=== PATIENT | female | born 1960 | race Caucasian/White ===

== ENCOUNTER 2017-05-27 10:41 | Emergency (ER) | payer OTHER ==
[~2017-05-27] VITALS: Ht 157.5 cm; Wt 74.8 kg
[2017-05-27 12:06] LABS: BILIRUBIN,URINE NEGATIVE (NEGATIVE); KETONES,URINE NEGATIVE (NEGATIVE); LEUKOCYTE ESTERASE ,URINE NEGATIVE (NEGATIVE); NITRITE,URINE NEGATIVE (NEGATIVE); PROTEIN,URINE DIPSTICK NEGATIVE (NEGATIVE); URINE UROBILINOGEN 0.2 mg/dL (0.2 - 1)
[2017-05-27 12:16] LABS: CLARITY,URINE CLEAR (CLEAR); COLOR,URINE YELLOW (YELLOW)
[2017-05-27 12:17] LABS: STREPTOCOCCUS GRP A ANTIGEN NEGATIVE (NEGATIVE)
[2017-05-27 12:27] LABS: BACTERIA,URINE RARE /HPF; EPITHELIAL CELLS,URINE FEW /LPF
[2017-05-27 12:28] LABS: INFLUENZAE A&B ANTIGEN (RAPID) POSITIVE FLU B (NEGATIVE)
--- NOTE | 2017-05-27 13:38 | Diagnostic Imaging Report ---
Portable chest x-ray CPT code 32656 INDICATION: Cough COMPARISON: None FINDINGS: Frontal view of the chest obtained at 1243 hours. Lung apices are not completely included on this image. The cardiac silhouette is normal. The pulmonary vascular marking are normal. The lungs demonstrate no mass or infiltrate. The costophrenic angles are sharp. There is no pneumothorax. The osseous structures are stable. IMPRESSION: No acute cardiopulmonary process given the limitations of this exam. Signed by: Dr. Phillip Teran MD on 05/27/2017 1:35 PM
== END 2017-05-27 15:37 | disposition home or self-care (01) ==
LOC: ER 10:41
DX: R50.9 Fever, unspecified (principal); R05 Cough; J11.1 Influenza due to unidentified influenza virus with other respiratory manifestations; I10 Essential (primary) hypertension
CPT/HCPCS: 71010; 81001; 83518; 87070; 87086; 87400; 99283